=== PATIENT | female | born 1935 | race Caucasian/White ===

== ENCOUNTER → 2016-12-28 | Outpatient (REF) | payer MEDICARE ==
[2016-12-28 16:16] LABS: BACTERIA, URINE LARGE AMOUNT; HYALINE CAST, URINE NONE SEEN /lpf (0-1); MICROSCOPIC EXAM PERFORMED; RBC, URINE 0-1 /hpf (0-3); SQUAMOUS EPITHELIAL CELL URINE SMALL AMOUNT /hpf (SMALL AMT)
== END ==
LOC: M LAB REF 14:00
PROVIDERS: ATTEND Nurse Practitioner Adult Health
DX: D51.9 Vitamin B12 deficiency anemia, unspecified (principal)

== ENCOUNTER → 2017-01-12 | Outpatient (REF) | payer MEDICARE | LOC: M LAB REF 12:37 | PROVIDERS: ATTEND Nurse Practitioner Adult Health | DX: N39.0 Urinary tract infection, site not specified (principal) ==

== ENCOUNTER 2017-03-02 05:53 | Day surgery (SDC) | payer MEDICARE ==
[~2017-03-02] VITALS: Ht 162.6 cm; Wt 61.2 kg
[~2017-03-02 05:53] MED LIST: ARTH650T17 PO; ASPI81TA85 PO; HYDR12.55 PO; LISI10TA4 PO; OSCA200T PO; SPIR25TA2 PO; VITA500046 PO
[2017-03-02] MEDS ORDERED: LR 1,000 ML IV SCH ×2 (06:00→10:15)
[2017-03-02] MEDS ORDERED: CETACAINE SPRAY 20GM (FLOOR STOCK) As Ordered ONE (07:12)
[2017-03-02] MEDS ORDERED: THROMBIN SOLN 5,000 UNITS VIAL As Ordered ONE (07:12)
[2017-03-02] MEDS ORDERED: EPINEPHrine 1MG/10ML SYRINGE 1.5IN As Ordered ONE (07:12)
[2017-03-02] MEDS ORDERED: LIDOCAINE VISCOUS 2% SOLN 15ML UDC As Ordered ONE (07:12)
[2017-03-02] MEDS ORDERED: LIDOCAINE 1% SDV INJ 30 ML VIAL As Ordered ONE (07:14)
[2017-03-02] MEDS ORDERED: ROCURONIUM BROMIDE 50 MG/5 ML VIAL/SYRINGE As Ordered ONE (07:44)
[2017-03-02] MEDS ORDERED: fentaNYL 100 MCG/2 ML INJECTION (J3010) As Ordered ONE (07:44)
[2017-03-02] MEDS ORDERED: PROPOFOL 200 MG/20 ML VIAL As Ordered ONE (07:44)
[2017-03-02] MEDS ORDERED: MIDAZOLAM INJ 2 MG/2 ML VIAL (J2250) As Ordered ONE (07:44)
[2017-03-02] MEDS ORDERED: LIDOCAINE 2% INJ 100 MG/5 ML SDV (FOR ANES.) As Ordered ONE (07:44)
[2017-03-02] MEDS ORDERED: METOPROLOL 5 MG/5 ML VIAL As Ordered ONE (07:45)
[2017-03-02] MEDS ORDERED: ONDANSETRON 4MG/2ML VIAL (J2405) As Ordered ONE (08:04)
[2017-03-02] MEDS ORDERED: GLYCOPYRROLATE INJ 0.2 MG/ML 2 ML VIAL As Ordered ONE (08:04)
[2017-03-02] MEDS ORDERED: NEOSTIGMINE 10 MG/10 ML VIAL (J2710) As Ordered ONE (08:05)
[2017-03-02] MEDS ORDERED: ePHEDrine SULFATE 25 MG/5 ML(5MG/ML) SYRINGE As Ordered ONE (08:13)
[2017-03-02] MEDS ORDERED: dexameTHASONE 4 MG/ML 1ML VIAL (J1100) As Ordered ONE (08:26)
--- NOTE | 2017-03-02 10:01 | REP ---
Clinical: Postoperative assessment . Comparison: None . Findings: The mediastinum and cardiac silhouette are stable and within normal limits for portable technique. The lung horner are clear without acute consolidation, effusion, or pneumothorax. Skeletal structures are intact. Impression: No definite acute cardiopulmonary process appreciated. Signed by Jose Antonio Salazar MD 03/02/2017 09:52 A
[2017-03-02] MEDS ORDERED: fentaNYL 100 MCG/2 ML INJECTION (J3010) IV PRN (10:15)
[2017-03-02] MEDS ORDERED: ONDANSETRON 4MG/2ML VIAL (J2405) IV PRN (10:15)
--- NOTE | 2017-03-02 10:15 | RO ---
DATE OF PROCEDURE: 03/02/2017 TIME: 0912 hours PREOPERATIVE DIAGNOSES: Abnormal chest CT, pulmonary nodules, right lower lobe and left upper lobe. POSTOPERATIVE DIAGNOSES: Abnormal chest CT, pulmonary nodules, right lower lobe and left upper lobe. FINDINGS: Mucus in the airway with banding and pitting suggesting smoker's airway. PROCEDURE: Bronchoscopy with electromagnetic navigation, radial endobronchial ultrasound was fiducial marker placement. PROCEDURALIST: Dr. Brown OFFENDER EMPLOYMENT SPECIALIST: MONTEZ Huerta ANESTHESIA: General. SPECIMENS OBTAINED: 1. Right lower lobe Cyto needle brush 2. Right lower lobe fine-needle aspiration. 3. Right lower lobe transbronchial biopsies. 4. Left upper lobe fine-needle aspiration. 5. Left upper lobe transbronchial biopsies. ESTIMATED BLOOD LOSS: 5-10 mL, none replaced. COMPLICATIONS: No observed complications. However, postprocedure chest x-ray is pending. DESCRIPTION OF PROCEDURE: After informed consent was reviewed with the patient in the preoperative area, she was brought back to [facility] #8. I handed her over to general anesthesia. General anesthesia was initiated with an 8.5 endotracheal tube. Once anesthesia was adequate, anesthesia was achieved, case was handed back over to ms. Airway was anesthetized with Cetacaine spray and the T180 bronchoscope was inserted into the airway. Trachea was midline. Rosaura was sharp. Right and left mainstem was normal except for some mucus. RB 1-10 was normal without endobronchial lesions. LB 1-10 was normal except for banding, pitting and quite a bit of mucus in the left lower lobe. This was suctioned. No endobronchial lesions were found. Right and left mainstem bronchus were normal. After exam of the airway, the bronchoscope was moved back into the endotracheal tube in the navigational probe was placed. Automatic registration was then performed and confirmed. Target one in the right lower lobe was then easily navigated to. Lesion was confirmed with radial ultrasound. Cyto needle brush , fine-needle aspiration and transbronchial biopsies were taken. After some suggestion of possible abnormal cells on cytology, two fiducial markers were placed. I then navigated to the left upper lobe lesion, which was slightly more difficult to obtain proximity. According to the navigation system, I was within 9 mm of the lesion. Radial endobronchial ultrasound was used and I did not see any significant circumferential tissue, therefore the navigation guide was reinserted navigated to a closer proximity. Again after navigation guide was removed, the radial ultrasound was inserted showing some minimal tissue, which was not circumferential. It was decided at this point in time to biopsy this area with fine-needle aspiration and forceps biopsies. After these samples were taken, no fiducial markers were placed at this location. All airways were suctioned, and the patient was sent to recovery. Postprocedure chest x-ray is pending. MAL
[2017-03-02 10:20] VITALS: BP 189/77
== END 2017-03-02 10:23 | disposition home or self-care (01) ==
LOC: M SDC 05:53
PROVIDERS: ATTEND Internal Medicine Pulmonary Disease
DX: C34.31 Malignant neoplasm of lower lobe, right bronchus or lung (principal); I10 Essential (primary) hypertension; M06.9 Rheumatoid arthritis, unspecified; Z79.899 Other long term (current) drug therapy
CPT/HCPCS: 31623; 31626; 31627; 31628; 31629; 31652; 71010; 76000; 88104; 88173; 88305; 88313; A4648; J1100; J2250; J2405; J2710; J3010

== ENCOUNTER 2017-05-08 13:11 | Emergency (ER) | payer OTHER, MEDICARE, MEDICAID ==
[2017-05-08] MEDS: ADACEL/BOOSTRIX VACCINE (DIPHTH/PERTUSS/ACELL/TETANUS)0.5ML SYR (90715) IM (16:38)
[2017-05-08] MEDS: DERMABOND TOPICAL SKIN ADHESIVE TOP (16:38)
== END 2017-05-08 16:42 | disposition home or self-care (01) ==
LOC: M ED 13:11
DX: S62.525A Nondisplaced fracture of distal phalanx of left thumb, initial encounter for closed fracture (principal); S61.012A Laceration without foreign body of left thumb without damage to nail, initial encounter; S60.112A Contusion of left thumb with damage to nail, initial encounter; W23.0XXA Caught, crushed, jammed, or pinched between moving objects, initial encounter; Y92.009 Unspecified place in unspecified non-institutional (private) residence as the place of occurrence of the external cause; I10 Essential (primary) hypertension; Z79.899 Other long term (current) drug therapy; Z79.82 Long term (current) use of aspirin; Z98.890 Other specified postprocedural states
CPT/HCPCS: 90715

== ENCOUNTER 2017-09-20 07:46 | Inpatient (IN) | payer MEDICARE, OTHER ==
[2017-09-20] MEDS ORDERED: FUROSEMIDE 100 MG/10 ML VIAL (J1940) IV (09:00)
[2017-09-20] MEDS: methylPREDNISolone INJ 125 MG/2 ML VIAL (J2930) IV ×2 (09:05→20:48)
[2017-09-20 09:06] LABS: BASO % 0.1 % (0.0-1.0); EOS % 0.1 % (0.0-3.0); HEMATOCRIT 34.7 % (36.0-47.0); HEMOGLOBIN 12.1 g/dl (12.0-15.5); IMMATURE GRANULOCYTE % 0.7 % (0-3.0); LYMPH # 0.6 10^3/uL (1.5-4.5); LYMPH % 3.7 % (24.0-44.0); MEAN CORPUSCULAR HEMOGLOBIN 29.9 pg (27.0-33.0); MEAN CORPUSCULAR HGB CONC 34.9 g/dl (32.0-36.5); MEAN CORPUSCULAR VOLUME 85.7 fl (80.0-96.0); MONO # 1.8 10^3/uL (0.0-0.8); MONO % 10.1 % (0.0-5.0); NEUTROPHILS # 14.7 10^3/uL (1.8-7.7); NEUTROPHILS % 85.3 % (36.0-66.0); PLATELET COUNT, AUTOMATED 350 10^3/uL (150-450); RED BLOOD COUNT 4.05 10^6/uL (4.00-5.40); RED CELL DISTRIBUTION WIDTH 13.6 % (11.5-14.5); WHITE BLOOD COUNT 17.3 10^3/uL (4.0-10.0)
[2017-09-20] MEDS: IPRATROPIUM 0.5MG/ALBUTEROL 2.5MG INH SOL UD 3ML (DUONEB)(J7620) NEB ×3 (09:13→20:10)
[2017-09-20 09:34] LABS: LACTIC ACID SEPSIS PROTOCOL 1.8 MMOL/L (0.4-2.0)
[2017-09-20 09:48] LABS: ALBUMIN 4.4 GM/DL (3.2-5.2); ALBUMIN/GLOBULIN RATIO 1.38 (1.00-1.93); ALKALINE PHOSPHATASE 87 U/L (45-117); ALT/SGPT 82 U/L (12-78); ANION GAP 14 MEQ/L (8-16); AST/SGOT 150 U/L (7-37); BILIRUBIN,DIRECT 1.9 MG/DL (0.0-0.2); BILIRUBIN,TOTAL 2.9 MG/DL (0.2-1.0); BLOOD UREA NITROGEN 84 MG/DL (7-18); CALCIUM LEVEL 9.4 MG/DL (8.8-10.2); CARBON DIOXIDE LEVEL 21 MEQ/L (21-32); CHLORIDE LEVEL 100 MEQ/L (98-107); CREATININE FOR GFR 2.33 MG/DL (0.55-1.30); GLOMERULAR FILTRATION RATE 21.3 (>32); GLUCOSE, FASTING 91 MG/DL (70-100); POTASSIUM SERUM 4.6 MEQ/L (3.5-5.1); SODIUM LEVEL 135 MEQ/L (136-145); TOTAL PROTEIN 7.6 GM/DL (6.4-8.2)
[2017-09-20 09:50] LABS: NT-PRO BNP > 175000 PG/ML (<450)
[2017-09-20] MEDS: LevoFLOXacin IV 500 MG in APPROPRIATE DILUENT 1 EA IV (12:42)
[2017-09-20] MEDS: FUROSEMIDE 100 MG/10 ML VIAL (J1940) IV (12:42)
[2017-09-20] MEDS ORDERED: ONDANSETRON 4MG/2ML VIAL (J2405) IV (12:45)
[2017-09-20] MEDS ORDERED: LORazepam 1 MG TAB PO (12:45)
[2017-09-20] MEDS ORDERED: SCOPOLAMINE 1MG TRANSDERMAL PATCH TOP (12:45)
[2017-09-20] MEDS ORDERED: MORPHINE 10MG/0.5ML ORAL CONCENTRATE SOLUTION U/D SL (12:45)
[2017-09-20] MEDS: AZITHROMYCIN 250 MG TAB PO (13:40)
[2017-09-20] MEDS: cefTRIAXone SOD 1 GM in D5W MINI-BAG PLUS 50 ML IV (13:40)
[2017-09-21] MEDS: IPRATROPIUM 0.5MG/ALBUTEROL 2.5MG INH SOL UD 3ML (DUONEB)(J7620) NEB ×5 (00:20→19:29)
[2017-09-21] MEDS: FUROSEMIDE 100 MG/10 ML VIAL (J1940) IV (08:57)
[2017-09-21] MEDS: ASPIRIN 81 MG ENTERIC TAB PO (08:57)
[2017-09-21] MEDS: AZITHROMYCIN 250 MG TAB PO (08:57)
[2017-09-21] MEDS: methylPREDNISolone INJ 125 MG/2 ML VIAL (J2930) IV (08:57)
[2017-09-21] MEDS: cefTRIAXone SOD 1 GM in D5W MINI-BAG PLUS 50 ML IV (14:53)
[2017-09-21] MEDS: methylPREDNISolone INJ 40 MG/1 ML VIAL (J2920) IV (22:18)
[2017-09-22] MEDS: IPRATROPIUM 0.5MG/ALBUTEROL 2.5MG INH SOL UD 3ML (DUONEB)(J7620) NEB ×2 (01:53→08:31)
[2017-09-22] MEDS: methylPREDNISolone INJ 40 MG/1 ML VIAL (J2920) IV (10:14)
[2017-09-22] MEDS: AZITHROMYCIN 250 MG TAB PO (10:15)
[2017-09-22] MEDS: ASPIRIN 81 MG ENTERIC TAB PO (10:15)
== END 2017-09-22 12:15 | disposition hospice, inpatient (51) | DRG 180 ==
LOC: M ED 07:46 → M ED INP 12:32 → M MSPAV 15:39
DX: C34.90 Malignant neoplasm of unspecified part of unspecified bronchus or lung (principal); J18.9 Pneumonia, unspecified organism; I21.4 Non-ST elevation (NSTEMI) myocardial infarction; I13.0 Hypertensive heart and chronic kidney disease with heart failure and stage 1 through stage 4 chronic kidney disease, or unspecified chronic kidney disease; J44.1 Chronic obstructive pulmonary disease with (acute) exacerbation; J44.0 Chronic obstructive pulmonary disease with (acute) lower respiratory infection; J90 Pleural effusion, not elsewhere classified; I50.9 Heart failure, unspecified; Z51.5 Encounter for palliative care; Z66 Do not resuscitate; N18.3 Chronic kidney disease, stage 3 (moderate); F17.210 Nicotine dependence, cigarettes, uncomplicated; Z79.82 Long term (current) use of aspirin; Z79.899 Other long term (current) drug therapy